=== PATIENT | female | born 2000 | race Caucasian/White ===

== ENCOUNTER 2025-01-13 12:48 | Emergency (ER) | payer MEDICAID ==
[~2025-01-13] VITALS: Ht 172.7 cm; Wt 69.0 kg
[2025-01-13 12:51] VITALS: O2SAT 98
[2025-01-13 13:04] VITALS: BP 128/73; PULSE 109; RESP 14; TEMP 36.8; O2SAT 99
[2025-01-13] MEDS ORDERED: NITR-87 MT (17:10)
[2025-01-13] MEDS ORDERED: PHEN-910 MT (17:10)
[2025-01-13 17:24] LABS: CLARITY URINE CLOUDY (CLEAR); COLOR URINE YELLOW (YELLOW); GLUCOSE URINE NEGATIVE (NEGATIVE); KETONES URINE NEGATIVE (NEGATIVE); LEUKOCYTE ESTERASE URINE 2+ (NEGATIVE); NITRITE URINE NEGATIVE (NEGATIVE); OCCULT BLOOD URINE 3+ (NEGATIVE); PH URINE 7.5 (4.5-8.0); PROTEIN URINE NEGATIVE (NEGATIVE); SPECIFIC GRAVITY URINE 1.012 (1.005-1.030); UROBILINOGEN URINE 0.2 E.U./dL (0.2-1.0)
[2025-01-13 17:52] LABS: BACTERIA URINE TRACE; SQUAMOUS EPITHELIAL CELL URINE FEW /lpf (RARE/1+)
== END 2025-01-13 17:39 | disposition home or self-care (01) ==
LOC: ER 12:48
DX: N39.0 Urinary tract infection, site not specified (principal)
CPT/HCPCS: 81003; 87077; 99283